=== PATIENT | male | born 1995 | race Caucasian/White ===

== ENCOUNTER 2022-12-14 05:54 | Emergency (ER) | payer OTHER, SELFPAY ==
[2022-12-14 05:57] VITALS: BP 133/80; PULSE 120; RESP 20; TEMP 36.7; O2SAT 99
--- NOTE | 2022-12-14 06:11 | ED.GENADULT ---
HPI - General Adult General Chief complaint: Anxiety Stated complaint: panic attack Time Seen by Provider: 12/14/22 06:01 History of Present Illness HPI narrative: Patient presents to the emergency department from home with increased anxiety attacks. He is taking Prozac that his primary care provider ordered. In college he states he had a lot of anxiety and was seeing a therapist. Recently he received a promotion and he thinks his anxiety may be related. Is worse in the morning prior to going to work. He also adds that when he has to leave to go hang out with friends he gets very nauseous. His panic attacks are described as uneasiness nauseous nests and nervousness. Patient is very pleasant and in no acute distress Related Data Home Medications Medication Instructions Recorded Confirmed Prozac 03/12/19 Allergies Allergy/AdvReac Type Severity Reaction Status Date / Time No Known Allergies Allergy Verified 12/14/22 06:03 Review of Systems Review of Systems: Review of systems negative except what is documented in the [facility] Past Medical History Medical History Depression Surgical History Surgical History (Updated 03/12/19 @ 10:21 by Rochelle Garrido PA-C) History of appendectomy Social History Social History (Updated 03/12/19 @ 10:22 by Rochelle Garrido PA-C) Smoking status: Never smoker Gender identity (if verbalized by the patient): Male Exam Narrative: GENERAL: Well-appearing, well-nourished, and in no acute distress. HEAD: Normocephalic, atraumatic. EYES: PERRLA and EOMI. ENT: Nares clear, no rhinorrhea or epistaxis. Mucous membranes moist. NECK: Supple. CHEST: Clear to auscultation. No respiratory distress. HEART: Regular rate and rhythm. ABDOMEN: Soft, nontender, nondistended. EXTREMITIES: Normal range of motion. No edema. SKIN: Warm, dry, no rash. NEURO: No focal deficits. Alert and oriented x3. PSYCH: Normal mood and affect. Course Course Emergency Course: Patient already taking Prozac. Will be difficult for him to take something for breakthrough anxiety due to needing to work afterwards. He would benefit from therapy. He is advised to follow-up with his primary care provider. Shared decision making with patient regarding taking Zofran as needed for nausea and Klonopin for breakthrough episodes of panic anxiety Vital Signs Vital signs: Vital Signs Temperature 36.7 C 12/14/22 05:57 Pulse Rate 120 H 12/14/22 05:57 Respiratory Rate 12/14/22 05:57 Blood Pressure 133/80 12/14/22 05:57 Pulse Oximetry 99 12/14/22 05:57 Oxygen Delivery Room Air 12/14/22 05:57 Temperature 36.7 C 12/14/22 05:57 Pulse Rate 120 H 12/14/22 05:57 Respiratory Rate 20 12/14/22 05:57 Blood Pressure 133/80 12/14/22 05:57 Pulse Oximetry 99 12/14/22 05:57 Oxygen Delivery Room Air 12/14/22 05:57 Medical Decision Making Vital Signs Vital Signs: Vital Signs Temperature 36.7 C 12/14/22 05:57 Pulse Rate 120 H 12/14/22 05:57 Respiratory Rate 12/14/22 05:57 Blood Pressure 133/80 12/14/22 05:57 Pulse Oximetry 99 12/14/22 05:57 Oxygen Delivery Room Air 12/14/22 05:57 Temperature 36.7 C 12/14/22 05:57 Pulse Rate 120 H 12/14/22 05:57 Respiratory Rate 12/14/22 05:57 Blood Pressure 133/80 12/14/22 05:57 Pulse Oximetry 99 12/14/22 05:57 Oxygen Delivery Room Air 12/14/22 05:57 Discharge Plan Discharge Clinical Impression: Acute anxiety Patient Disposition: Home, Self-Care Condition: Stable Instructions: Anxiety (ED) Prescriptions: New ondansetron 4 mg tablet,disintegrating 4 mg PO Q8H PRN (Reason: nausea and vomiting) Qty: 20 0RF clonazepam [Klonopin] 0.5 mg tablet 0.5 mg PO BID Qty: 20 0RF No Action Prozac hydrocodone-acetaminophen 5-325 mg tablet 1 tablet PO Q8H PRN (Reason: pain) Qty
[2022-12-14 06:22] VITALS: PULSE 64; RESP 16; O2SAT 99
== END 2022-12-14 06:24 | disposition home or self-care (01) ==
LOC: ANHED 06:24
PROVIDERS: Emergency Provider Emergency Medicine
DX: F41.9 Anxiety disorder, unspecified (principal); F32.A Depression, unspecified
CPT/HCPCS: 99283

== ENCOUNTER 2023-10-15 08:02 | Outpatient (CLI) | payer OTHER, SELFPAY ==
--- NOTE | ~2023-10-15 | XR_ITS ---
Right foot Technique: AP, oblique, and lateral views were obtained. Clinical History: Injury Findings: No acute fracture or dislocation is seen. Osseous alignment is anatomic. Joint spaces are p reserved without erosive or degenerative change. Soft tissues are unremarkable. Impression: Unremarkable right foot radiographs. Reviewed, dictated and finalized at location . Impression: Unremarkable right foot radiographs.
--- NOTE | ~2023-10-15 | XR_ITS ---
Right ankle Technique: AP, oblique, and lateral views were obtained. Clinical History: Injury Findings: No acute fracture or dislocation is seen. Osseous alignment is anatomic. Ankle mortise and other visualized joint spaces are preserved. Soft tissues are otherwise unremarkable. Impression: Unremarkable right ankle. Reviewed, dictated and finalized at location . Impression: Unremarkable right ankle.
== END 2023-10-15 08:03 ==
PROVIDERS: PCP Internal Medicine; Visit Provider Nurse Practitioner
DX: M25.571 Pain in right ankle and joints of right foot (principal); M79.671 Pain in right foot
CPT/HCPCS: 73610; 73630